=== PATIENT | female | born 1975 | race Caucasian/White ===

== ENCOUNTER 2017-07-24 15:06 | Inpatient (IN) ==
[2017-07-24] MEDS ORDERED: methylPREDNISolone SOD SUCC 125 MG/2 ML VIAL IV ONE (15:21)
[2017-07-24] MEDS ORDERED: IPRATROPIUM/ALBUTEROL 3 ML AMPUL.NEB NEB ONE ×2 (15:21→19:37)
[2017-07-24] MEDS ORDERED: LACTATED RINGERS 1,000 ML IV ONE (15:21)
[2017-07-24 15:49] LABS: Basophils # (Auto) 0 K/mcL (0.0-0.3); Basophils % (Auto) 0.1 % (0.0-2.0); Eosinophils # (Auto) 0.1 K/mcL (0.0-0.7); Eosinophils % (Auto) 0.6 % (0.0-7.0); Granulocytes % (Auto) 83.9 % (38.0-78.0); Lymphocytes # (Auto) 1.9 K/mcL (1.5-4.8); Lymphocytes % (Auto) 10.8 % (15.5-49.0); Mean Cell Volume 82.9 fL (80.0-100.0); Mean Corpuscular HGB Conc 34.5 g/dL (31.0-36.0); Mean Corpuscular Hemoglobin 28.6 pg (26.0-34.0); Monocytes # (Auto) 0.8 K/mcL (0.1-0.9); Monocytes % (Auto) 4.6 % (1.0-12.0); Platelet Count 320 K/mcL (140-440); RBC 4.75 M/mcL (4.00-5.20); Red Cell Distribution Width 13.9 % (11.5-14.5)
[2017-07-24] MEDS ORDERED: AZITHROMYCIN 500 MG in DEXTROSE 5% IN WATER 250 ML IV ONE (16:00)
[2017-07-24] MEDS ORDERED: cefTRIAXone 1 GM in DEXTROSE 5% IN WATER 50 ML IV SCH (16:00)
[2017-07-24] MEDS ORDERED: ACETAMINOPHEN 325 MG TABLET PO ONE (16:01)
[2017-07-24 16:22] LABS: ALT/SGPT 24 U/l (0-40); Albumin 3.7 gm/dL (3.2-5.2); Albumin/Globulin Ratio 1.1 (1.0-2.3); Alkaline Phosphatase 90 U/L (39-117); Blood Urea Nitrogen 10 mg/dl (6-20); C-Reactive Protein 9.7 mg/dl (0.0-0.8); Magnesium 1.9 mg/dL (1.6-2.5)
[2017-07-24] MEDS ORDERED: ONDANSETRON 4 MG/2 ML VIAL IV ONE (16:36)
--- NOTE | 2017-07-24 16:48 | XRay Report ---
CLINICAL INFORMATION: Dyspnea COMPARISON: 07/15/2017 FINDINGS: Heart size, mediastinum and pulmonary vessels are normal. There is moderate patchy infiltrate or atelectasis in the inferior left lower lobe. No definite effusion. Bones and soft tissues normal IMPRESSION: Moderate patchy infiltrate or atelectasis - inferior left lower lobe Interpreted and Authenticated by: Kilo Presley 07/24/17
--- NOTE | 2017-07-24 16:53 | Emergency Department Note ---
SOB HPI - General Chief Complaint: Shortness of Breath/Dyspnea Stated Complaint: short of breath Time Seen by Provider: 07/24/17 15:11 Source: patient, family Mode of arrival: ambulatory Limitations: no limitations - History of Present Illness Very poor historian. Apparently she was placed on some home oxygen by a physician in [place], called a neighbor today because she was short of breath. She is brought up by a neighbor and when she arrived her O2 sats were 68%. She was not on her oxygen when she arrived here. Smokes significantly, she won't tell us how much. Has had a slight cough, denies any fever or chills but is bringing up some phlegm, denies any abdominal pain she's had no nausea vomiting or diarrhea. Denies any ankle swelling. No history of cardiac issues. MD Complaint: shortness of breath - Related Data Home Medications Medication Instructions Recorded Confirmed Amitriptyline HCl 100 mg PO HS 08/22/15 07/24/17 Amitriptyline [Elavil] 25 mg PO HS 08/22/15 07/24/17 DULoxetine [Cymbalta] 60 mg PO DAILY 08/22/15 07/24/17 Doxepin HCl 100 mg PO BID 08/22/15 07/24/17 Gemfibrozil [Lopid] 600 mg PO BID 08/22/15 07/24/17 HYDROcodone/APAP 10/325MG [[place] 1 tab PO Q4H PRN 08/22/15 07/24/17 10/325Mg] LORazepam [Ativan] 2 mg PO Q6-8HP 08/22/15 07/24/17 Pregabalin [Lyrica] 200 mg PO DAILY 08/22/15 07/24/17 Ranitidine HCl [Zantac] 300 mg PO QHS 08/22/15 07/24/17 Venlafaxine [Effexor] 75 mg PO DAILY 08/22/15 07/24/17 busPIRone [Buspar] 10 mg PO TID 08/22/15 07/24/17 Previous Rx's Medication Instructions Recorded Phenazopyridine [Pyridium] 200 mg PO BIDP PRN #14 tablet 12/05/15 Allergies Allergy/AdvReac Type Severity Reaction Status Date / Time No Known Drug Allergies Allergy Verified 04/13/16 14:51 Review of Systems All systems ED: reviewed and negative except as stated. Past Medical History - Past Medical History Source: nursing notes reviewed Medical history: Reports: COPD, other (MRSA) Surgical history ED: Reports: other Psychiatric history: Reports: anxiety, depression Family history: Reports: CAD/[place] - Social History smoking status: Current some day smoker Alcohol use: Reports: Unknown Drug use: Reports: marijuana, other (last UDS showed positive for amphetamines, opiates, barbiturates) Physical Exam - General Limitations: no limitations General appearance: alert, in distress - Head Head exam: atraumatic, normocephalic - Eye Eye exam: Present: normal appearance, PERRL, EOMI - ENT ENT exam: normal exam, normal oropharynx, mucous membranes moist, other ( edentulous) - Neck Neck exam: Present: normal inspection, full ROM. Absent: tenderness, meningismus - Chest Chest inspection: Present: normal inspection, symmetric chest wall rise - Respiratory Respiratory exam: Present: respiratory distress, wheezes, accessory muscle use - Cardiovascular Cardiovascular exam: Present: regular rate, normal heart sounds - Abdominal Exam Abdominal exam: Present: soft, normal bowel sounds. Absent: distention, tenderness, guarding - Extremities Exam Extremities exam: Present: normal inspection, full ROM, tenderness. Absent: normal capillary refill, pedal edema - Back Exam Back exam: Present: normal inspection. Absent: CVA tenderness (R), CVA tenderness (L) - Neurological Exam Neurological exam: Present: alert. Absent: motor sensory deficit - Psychiatric Psychiatric exam: Present: depressed - Skin Skin exam: Present: warm, dry, intact, cyanosis Course Vital Signs Temperature 99.3 F H 07/24/17 15:07 Pulse Rate 113 H 07/24/17 15:07 Respiratory Rate 24 H 07/24/17 15:07 Blood Pressure 106/76 07/24/17 15:07 Pulse Oximetry (%) 68 L 07/24/17 15:07 Temperature 100.1 F H 07/24/17 16:25 Pulse Rate 115 H 07/24/17 16:41 Respiratory Rate 19 07/24/17 16:41 Blood Pressure 125/65 07/24/17 16:41 Pulse Oximetry (%) 97 07/24/17 16:41 Shortness of Breath/Dyspnea - [facility] Narrative Medical decision making narrative: Final impression pneumonia, #2 COPD exacerbation Plan is hospital admission, discussed with Dr. Jc - Lab Data Lab results reviewed: Yes I reviewed the patient's lab results. Result diagrams: 07/24/17 15:29 07/24/17 15:29 Lab Results 07/24/17 07/24/17 07/24/17 Range/Units 15:29 15:29 15:29 WBC 17.5 H (4.5-11.0) K/mcL RBC 4.75 (4.00-5.20) M/mcL Hgb 13.6 (12.0-15.0) g/dL Hct 39.4 (36.0-48.0) % MCV 82.9 (80.0-100.0) fL MCH 28.6 (26.0-34.0) pg MCHC 34.5 (31.0-36.0) g/dL RDW 13.9 (11.5-14.5) % Plt Count 320 (140-440) K/mcL MPV 7.9 (7.4-10.4) fL Gran % 83.9 H (38.0-78.0) % Lymph % (Auto) 10.8 L (15.5-49.0) % [place] % (Auto) 4.6 (1.0-12.0) % Eos % (Auto) 0.6 (0.0-7.0) % Baso % (Auto) 0.1 (0.0-2.0) % Gran # 14.7 H (1.8-8.0) K/mcL Lymph # (Auto) 1.9 (1.5-4.8) K/mcL [place] # (Auto) 0.8 (0.1-0.9) K/mcL Eos # (Auto) 0.1 (0.0-0.7) K/mcL Baso # (Auto) 0 (0.0-0.3) K/mcL PT 13.8 (11.9-14.5) sec INR 1.0 (0.9-1.1) D-Dimer 0.71 H (0.00-0.40) ug/ml Sodium 137 (133-145) mmol/L Potassium 3.5 (3.3-5.1) mmol/L Chloride 94 L (96-108) mmol/L Carbon Dioxide 29 (22-30) mmol/L Anion Gap 14.0 (8-16) BUN 10 (6-20) mg/dl Creatinine 0.8 (0.6-1.1) mg/dl GFR Calculation 90 Glucose 116 H (70-105) mg/dL Calcium 8.7 (8.6-10.4) mg/dl Magnesium 1.9 (1.6-2.5) mg/dL Total Bilirubin 0.5 (0.0-1.0) mg/dL AST 17 (0-37) U/l ALT 24 (0-40) U/l Alkaline Phosphatase 90 (39-117) U/L C-Reactive Protein (0.0-0.8) mg/dl Total Protein 7.1 (5.9-8.4) gm/dL Albumin 3.7 (3.2-5.2) gm/dL Globulin 3.4 (2.2-3.7) gm/dL Albumin/Globulin Ratio 1.1 (1.0-2.3) 07/24/17 Range/Units 15:29 WBC (4.5-11.0) K/mcL RBC (4.00-5.20) M/mcL Hgb (12.0-15.0) g/dL Hct (36.0-48.0) % MCV (80.0-100.0) fL MCH (26.0-34.0) pg MCHC (31.0-36.0) g/dL RDW (11.5-14.5) % Plt Count (140-440) K/mcL MPV (7.4-10.4) fL Gran % (38.0-78.0) % Lymph % (Auto) (15.5-49.0) % [place] % (Auto) (1.0-12.0) % Eos % (Auto) (0.0-7.0) % Baso % (Auto) (0.0-2.0) % Gran # (1.8-8.0) K/mcL Lymph # (Auto) (1.5-4.8) K/mcL [place] # (Auto) (0.1-0.9) K/mcL Eos # (Auto) (0.0-0.7) K/mcL Baso # (Auto) (0.0-0.3) K/mcL PT (11.9-14.5) sec INR (0.9-1.1) D-Dimer (0.00-0.40) ug/ml Sodium (133-145) mmol/L Potassium (3.3-5.1) mmol/L Chloride (96-108) mmol/L Carbon Dioxide (22-30) mmol/L Anion Gap (8-16) BUN (6-20) mg/dl Creatinine (0.6-1.1) mg/dl GFR Calculation Glucose (70-105) mg/dL Calcium (8.6-10.4) mg/dl Magnesium (1.6-2.5) mg/dL Total Bilirubin (0.0-1.0) mg/dL AST (0-37) U/l ALT (0-40) U/l Alkaline Phosphatase (39-117) U/L C-Reactive Protein 9.7 H (0.0-0.8) mg/dl Total Protein (5.9-8.4) gm/dL Albumin (3.2-5.2) gm/dL Globulin (2.2-3.7) gm/dL Albumin/Globulin Ratio (1.0-2.3) - Radiology Data Radiology results reviewed: Yes I reviewed the patient's radiology results. Disposition Pt seen by CREDIT RISK ASSOCIATE/PA only: No Clinical Impression: Community acquired pneumonia, Acute exacerbation of chronic obstructive airways disease Disposition: Xfer As Inpt ([facility]) Condition: Fair Referrals: Esther Rubin ARNP [Primary Care Provider] -
[2017-07-24] MEDS ORDERED: NICOTINE 21 MG PATCH TOPICAL ONE (17:09)
--- NOTE | 2017-07-24 17:39 | Internal Med History&Physical ---
Medical - H&P: HPI Patient information: Note initiated : 07/24/17 at 5:39 pm Patient: Cassie Rivera 42 y/o F admitted on for short of breath. History of present illness: Ms. Rivera is a 42 year old white female with a history of chronic pain and fibromyalgia. She also has been a smoker since the age of 7. She apparently went to a clinic or hospital in [place] about 5 days ago, when she noted dyspnea on exertion. She says they did some tests, and then prescribed her oxygen and gave her a shot of a "blood thinner" in her abdomen. She says they prescribed her inhalers at that time as well. She cannot really recall what tests they did or what the results were, or even the name of the facility. She says she has not been diagnosed with COPD in the past. Over the last 5 days her breathing is gotten worse, and she was going to go see her regular doctor tomorrow as scheduled, but her sister insisted that she come to the emergency room today. Apparently O2 saturations on room air today were in the 60s. Chest x-ray is suggestive of left lower lobe pneumonia. She also had a low- grade fever. She reports that she has had a cough productive of yellowish phlegm for the last 5 days, as well as a sore throat. She is having some chest pain with coughing, which she describes as a "sandpaper" type sensation. She is having dyspnea with exertion as well as at rest, and also when lying flat. She otherwise denies recent fever or chills. She does have chronic headaches, which are unchanged. She has chronic blurry vision, which is unchanged. She denies earaches or sinus symptoms. She denies palpitations, abdominal pain, nausea or vomiting. She does have chronic diarrhea, as well as chronic edema. She denies dysuria. Past medical history: Urinary tract infection, sepsis COPD, oxygen dependent. MRSA Depression and anxiety, insomnia Hypertension history of GERD and gastritis Chronic tobacco abuse Fibromyalgia History of polypharmacy, overdose in August 2015, with amphetamines, barbiturates, opiates (unintentional) Chronic pain Hypertriglyceridemia Past surgical history: Hysterectomy, cholecystectomy, bladder lift. Medications: (Unverified) Clonazepam 2 mg 3 times daily Flexeril 10 mg 3 times daily [place] 10/325 one every 4 hours as needed Gemfibrozil 600 mg twice daily Doxepin 100 mg twice daily Cymbalta 60 mg daily Elavil 25 mg nightly +100 mg nightly BuSpar 10 mg 3 times daily Effexor 75 mg daily Ranitidine 300 mg nightly Lyrica 200 mg daily Pyridium 200 mg twice daily as needed From [place] discharge summary, a few days ago: Albuterol 2 puffs every 6 hours as needed BuSpar 15 mg every 6 hours Chlorzoxazone 500 mg 3 times daily Clonazepam 2 mg 3 times daily Doxepin 100 mg nightly Duloxetine 30 mg nightly [place] 50-325-41 every 6 hours as needed Lisinopril 20 mg daily Loperamide 2 mg 4 times daily as needed Omeprazole 20 mg nightly Promethazine 25 mg every 6 hours as needed Elavil 25 mg nightly [place] 10/325 every 6 hours as needed Lyrica 400 mg nightly Allergies: No known drug allergies Family history: Coronary disease. Patient reports her mother and father and both grandparents had heart failure. There is also family history of pancreatic , uterine, breast, throat cancers. Social history: Current smoker. Patient has been smoking since the age of 7, and currently smokes 3 packs of cigarettes per day. She has never really tried to quit. Past history of marijuana, amphetamine, barbiturate use, with unintentional overdose. She smokes marijuana about every other day. She drinks alcohol rarely. Medical - H&P: Meds Home Medications Medication Instructions Recorded Confirmed Type Amitriptyline [Elavil] 100 mg PO HS 08/22/15 07/25/17 History DULoxetine [Cymbalta] 30 mg PO HS 08/22/15 07/25/17 History Doxepin HCl 100 mg PO HS 08/22/15 07/25/17 History HYDROcodone/APAP 10/325MG [[place] 1 tab PO Q6HP PRN 08/22/15 07/25/17 History 10/325Mg] Pregabalin [Lyrica] 400 mg PO HS 08/22/15 07/25/17 History clonazePAM [Klonopin] 2 mg PO TID 07/24/17 07/25/17 History Albuterol Sulfate [Ventolin] 2 puff INH Q6HP PRN 07/25/17 07/25/17 History Chlorzoxazone [Parafon Forte Dsc] 500 mg PO TID 07/25/17 07/25/17 History Fiorinal 50-325-40 mg Capsule 1 tab PO Q6HP PRN 07/25/17 07/25/17 History Lisinopril [Zestril] 20 mg PO DAILY 07/25/17 07/25/17 History Loperamide HCl [Loperamide] 2 mg PO QIDP PRN 07/25/17 07/25/17 History Omeprazole [PriLOSEC] 20 mg PO HS 07/25/17 07/25/17 History Promethazine [Phenergan] 25 mg PO Q6HP PRN 07/25/17 07/25/17 History busPIRone [Buspar] 15 mg PO Q6 07/25/17 07/25/17 History Allergies Allergy/AdvReac Type Severity Reaction Status Date / Time baclofen AdvReac Other Verified 07/24/17 23:46 Medical - H&P: Exam - Constitutional Vitals: Temp Pulse Resp BP Pulse Ox 100.8 F H 107 H 19 118/66 95 07/24/17 17:10 07/24/17 17:06 07/24/17 17:06 07/24/17 17:06 07/24/17 17:06 On arrival, temperature was 99.3, heart rate 113, respiratory rate 24, blood pressure 106/76, O2 saturation 68% on room air. O2 saturation is currently 97% on 3 L nasal cannula. Head: Normocephalic, atraumatic. Eyes: PERRLA, EOMI, anicteric, other than a mild left lid droop, which she says is chronic. Ears: TMs and canals are clear. Pharynx: Pharynx is clear. She is edentulous. Mucosa appears normal. Neck: Is supple, without obvious lymphadenopathy, thyromegaly, bruits. Jugular venous pressure is 6 or 7 cm lying at about 30. Cardiac exam: Shows regular rate and rhythm with normal S1 and S2, without murmurs or rubs or gallops. Lung exam: Posteriorly breath sounds are decreased, without rhonchi or crackles. She does have some wheezing over the left anterior chest, expiratory. Abdomen: Is obese, but soft and nontender. There is a small bruise in the mid abdomen which is from the injection she received about 5 days ago. She believes it was a blood thinner and that it was not a steroid shot. Extremities: Show no cyanosis, clubbing, edema. Pulses are intact. Neurologic exam: Is grossly nonfocal. Medical - H&P: Reslt - Labs CBC & Chem 7: 07/25/17 04:31 07/25/17 04:31 Labs: Short CBC 07/24/17 Range/Units 15:29 WBC 17.5 H (4.5-11.0) K/mcL Hgb 13.6 (12.0-15.0) g/dL Hct 39.4 (36.0-48.0) % Plt Count 320 (140-440) K/mcL BMP 07/24/17 15:29 Sodium 137 Potassium 3.5 Chloride 94 L Carbon Dioxide 29 BUN 10 Creatinine 0.8 Glucose 116 H Calcium 8.7 Liver Function 07/24/17 Range/Units 15:29 Total Bilirubin 0.5 (0.0-1.0) mg/dL AST 17 (0-37) U/l ALT 24 (0-40) U/l Alkaline Phosphatase 90 (39-117) U/L Albumin 3.7 (3.2-5.2) gm/dL Medical - H&P: A/P (1) Hypoxia Current visit: Yes Status: Acute (2) Tobacco abuse Current visit: Yes Status: Chronic (3) Fibromyalgia Current visit: Yes Status: Chronic (4) Chronic pain Current visit: Yes Status: Chronic (5) Chronic diarrhea Current visit: Yes Status: Chronic (6) Depression with anxiety Current visit: Yes Status: Chronic (7) Community acquired pneumonia Current visit: Yes Status: Acute (8) Acute exacerbation of chronic obstructive airways disease Current visit: Yes Status: Acute - Narrative A/P Narrative: #1. Pulmonary. Patient presents with ongoing dyspnea and room air hypoxia. Chest x-ray suggestive of left lower lobe pneumonia. However, patient was also evaluated at another facility in [place] about 5 days ago, and is uncertain about what those results showed. She appears to have a COPD exacerbation, but has never been diagnosed with COPD. -Admit for further workup and treatment. -Continuous pulse oximetry -Albuterol nebs, oxygen, pulmonary toilet as needed -Consider IV steroids. -Try to find out the name of the facility where she had testing in [place], to see if she had a CT scan of her chest. If she did not, consider CT angios here , given the confusing nature of her recent history. -For apparent pneumonia, cover with Rocephin and azithromycin. -Given possible JVD, as well as orthopnea, check EKG and BNP, and troponin. 2. Tobacco abuse. -NicoDerm patch. -We discussed that it is important that she consider quitting smoking. She says she is willing to think about it. 3. Rheumatologic. Patient reports a history of fibromyalgia and chronic pain. She is on numerous medications, that generally would not be used together. We will try to contact [facility]'s pharmacy to verify medications and doses. Next line including clonazepam, Flexeril, [place], doxepin, Cymbalta, Elavil, BuSpar, Effexor, Lyrica. 4. Status: Full code. She says she would like her twin sister, Reshma De Guzman, to be her POA. 5. DVT prophylaxis: Subcu Lovenox. 6. Depression and anxiety. Continue medications, once we verify them. These would include clonazepam, doxepin, Cymbalta, Elavil, BuSpar, Effexor. 7. Hypertension. 8. GI. History of GERD and gastritis. Patient should consider quitting smoking. Continue ranitidine. 9. Hypertriglyceridemia. This visit is taken approximately 60 minutes so far, to review patient's case with the ER MD, review her records and test results, interview and examine her, and write orders.
[2017-07-24 18:09] LABS: Amphetamine Screen,Urine NONE DETECTED (NONDETECTED); Cocaine Screen,Urine NONE DETECTED (NONDETECTED); Oxycodone, Urine Screen NONE DETECTED (NONDETECTED)
[2017-07-24 18:25] LABS: Benzodiazepines Screen,Urine SUSPECT POSITIVE (NONDETECTED); Opiate Screen,Urine SUSPECT POSITIVE (NONDETECTED)
[2017-07-24] MEDS ORDERED: DOCUSATE SODIUM 100 MG CAPSULE PO PRN (19:10)
[2017-07-24] MEDS ORDERED: CALCIUM CARBONATE 500 MG TAB.CHEW CHEWED PRN (19:10)
[2017-07-24] MEDS ORDERED: NALOXONE HCL 0.4 MG/ML VIAL IV PRN (19:10)
[2017-07-24] MEDS ORDERED: ALBUTEROL SULFATE 2.5 MG/3 ML NEBULIZER NEB PRN (19:10)
[2017-07-24] MEDS ORDERED: ACETAMINOPHEN 325 MG TABLET PO PRN (19:10)
[2017-07-24] MEDS ORDERED: MAGNESIUM HYDROXIDE 30 ML ORAL.SUSP PO PRN (19:10)
[2017-07-24] MEDS: IPRATROPIUM/ALBUTEROL 3 ML AMPUL.NEB NEB SCH (19:35)
[2017-07-24] MEDS ORDERED: POTASSIUM CHLORIDE 20 MEQ/10 ML VIAL IV ONE (20:11)
[2017-07-24] MEDS: POTASSIUM CHLORIDE 20 MEQ in 0.45 % SODIUM CHLORIDE 1,000 ML IV SCH (20:28)
[2017-07-24] MEDS: 0.9 % SODIUM CHLORIDE 10 ML SYRINGE IV SCH (20:31)
[2017-07-24] MEDS: HYDROcodone/APAP 10/325MG TABLET PO PRN (23:40)
[2017-07-24] MEDS ORDERED: HYDROcodone/APAP 10/325MG TABLET PO ONE (23:44)
[2017-07-25] MEDS: ONDANSETRON 4 MG/2 ML VIAL IV PRN ×2 (00:03→21:46)
[2017-07-25] MEDS: CYCLOBENZAPRINE 10 MG TABLET PO SCH ×4 (00:03→20:17)
[2017-07-25] MEDS: IPRATROPIUM/ALBUTEROL 3 ML AMPUL.NEB NEB SCH ×4 (01:32→18:52)
[2017-07-25] MEDS: 0.9 % SODIUM CHLORIDE 10 ML SYRINGE IV SCH ×3 (05:54→21:50)
[2017-07-25 05:56] LABS: Basophils # (Auto) 0 K/mcL (0.0-0.3); Basophils % (Auto) 0.1 % (0.0-2.0); Eosinophils # (Auto) 0.1 K/mcL (0.0-0.7); Eosinophils % (Auto) 0.6 % (0.0-7.0); Granulocytes % (Auto) 86.3 % (38.0-78.0); Lymphocytes # (Auto) 1.2 K/mcL (1.5-4.8); Lymphocytes % (Auto) 9.3 % (15.5-49.0); Mean Cell Volume 85.9 fL (80.0-100.0); Mean Corpuscular HGB Conc 34.1 g/dL (31.0-36.0); Mean Corpuscular Hemoglobin 29.3 pg (26.0-34.0); Monocytes # (Auto) 0.5 K/mcL (0.1-0.9); Monocytes % (Auto) 3.7 % (1.0-12.0); Platelet Count 321 K/mcL (140-440); RBC 4.14 M/mcL (4.00-5.20); Red Cell Distribution Width 13.9 % (11.5-14.5)
[2017-07-25 06:11] LABS: ALT/SGPT 18 U/l (0-40); Albumin 3.5 gm/dL (3.2-5.2); Albumin/Globulin Ratio 1.1 (1.0-2.3); Alkaline Phosphatase 82 U/L (39-117); Bilirubin,Direct < 0.2 mg/dL (0.0-0.3); Blood Urea Nitrogen 12 mg/dl (6-20); Gamma Glutamyl Transpeptidase 26 U/L (5-36); Magnesium 2.1 mg/dL (1.6-2.5)
--- NOTE | 2017-07-25 08:05 | XRay Report ---
CLINICAL INFORMATION: Follow pneumonia COMPARISON: 07/24/2017 FINDINGS: Heart size, mediastinum and pulmonary vessels are normal. Small left basilar infiltrate has improved slightly. No definite effusion IMPRESSION: Slight improvement in small left basilar infiltrate. Interpreted and Authenticated by: Kilo Presley 07/25/17
[2017-07-25] MEDS: cefTRIAXone 1 GM in DEXTROSE 5% IN WATER 50 ML IV SCH (09:30)
[2017-07-25] MEDS: PREGABALIN 100 MG CAPSULE PO SCH (09:39)
[2017-07-25] MEDS: ENOXAPARIN 40 MG/0.4 ML SYRINGE SQ SCH (09:40)
[2017-07-25] MEDS: HYDROcodone/APAP 10/325MG TABLET PO PRN ×3 (09:42→20:15)
--- NOTE | 2017-07-25 10:19 | Internal Med Progress Note ---
Medical - PN: Subj Patient information: Note initiated : 07/25/17 at 10:19 am Patient: Cassie Rivera 42 y/o F admitted on 07/24/17 for short of breath. Interval history: July 24, 2017: History of present illness: Ms. Rivera is a 42 year old white female with a history of chronic pain and fibromyalgia. She also has been a smoker since the age of 7. She apparently went to a clinic or hospital in [place] about 5 days ago, when she noted dyspnea on exertion. She says they did some tests, and then prescribed her oxygen and gave her a shot of a "blood thinner" in her abdomen. She says they prescribed her inhalers at that time as well. She cannot really recall what tests they did or what the results were, or even the name of the facility. She says she has not been diagnosed with COPD in the past. Over the last 5 days her breathing is gotten worse, and she was going to go see her regular doctor tomorrow as scheduled, but her sister insisted that she come to the emergency room today. Apparently O2 saturations on room air today were in the 60s. Chest x-ray is suggestive of left lower lobe pneumonia. She also had a low- grade fever. She reports that she has had a cough productive of yellowish phlegm for the last 5 days, as well as a sore throat. She is having some chest pain with coughing, which she describes as a "sandpaper" type sensation. She is having dyspnea with exertion as well as at rest, and also when lying flat. She otherwise denies recent fever or chills. She does have chronic headaches, which are unchanged. She has chronic blurry vision, which is unchanged. She denies earaches or sinus symptoms. She denies palpitations, abdominal pain, nausea or vomiting. She does have chronic diarrhea, as well as chronic edema. She denies dysuria. July 25: This morning, the patient is quite somnolent. She notes that she was up until about 3 AM, she could just could not get to sleep. She thinks her breathing might be a bit better but she is not entirely sure. We did obtain some records from [facility] where she was seen last week. They treated her for COPD exacerbation, but she left after only one day, as she was insistent on leaving so she could go out and smoke. Otherwise she reports her usual widespread chronic pain. She denies fever chills, chest pain or palpitations, GI or symptoms, beyond her usual. She did undergo a CT angiogram today, which does show emphysema, atelectasis, and bilateral infiltrates, but did not show PE. - Constitutional Vitals: Vital Signs Temp Pulse Resp BP Pulse Ox 97.4 F 95 H 20 126/70 91 07/25/17 08:00 07/25/17 08:00 07/25/17 08:00 07/25/17 08:00 07/25/17 08:00 Period Temp Pulse Resp BP Sys/Ohara Pulse Ox Last 24 Hr 97.4 F-98.1 F 78-104 16-22 105-126/69-72 90-96 Intake and Output 07/24/17 07/25/17 07/25/17 21:59 05:59 13:59 Intake Total 400 / 400 Output Total 250 / 250 400 / 400 200 / 200 Balance -250 / 1050 0 / 0 -200 / -200 Weight 203 lb Intake & Output: Intake & Output 07/24/17 07/25/17 07/25/17 21:59 05:59 13:59 Intake Total 400 / 400 Output Total 250 / 250 400 / 400 200 / 200 Balance -250 / 1050 0 / 0 -200 / -200 Weight 203 lb Intake: Oral 400 / 400 Output: Void Amount 250 / 250 400 / 400 200 / 200 Other: Meal soup & sandwich Percent of Meal Consumed 100% Feeding Ability Independent # Voids 1 1 1 On exam she was quite somnolent, and had to be repeatedly spoken to and touch to get her to interact at all. She seemed reluctant to open her eyes. She was otherwise in no acute distress. Current vital signs show temperature of 97.7, heart rate 104, respiratory rate 16, blood pressure 118/70, O2 saturation 92% on 4 L Neck was supple without lymphadenopathy or JVD. Cardiac exam shows regular rate and rhythm. Lung exam shows diffuse and fairly loud wheezes and rhonchi throughout both lung [place]. Abdomen is soft. Extremities show no edema. Neurologic: The patient is very sleepy. Medical - PN: Obj Da - Labs CBC & Chem 7: 07/25/17 04:31 07/25/17 04:31 Labs: Abnormal Lab Results 07/25/17 07/25/17 04:31 04:31 WBC 13.3 H Hct 35.6 L Gran % 86.3 H Lymph % (Auto) 9.3 L Gran # 11.5 H Lymph # (Auto) 1.2 L Creatinine 0.5 L Glucose 130 H July 25: CT angiogram of the chest: Shows mild centrilobular emphysema. Moderate subsegmental atelectasis in the lingula, left lower lobe, inferior right lower lobe. Vague patchy groundglass infiltrates in the right upper lobe and both lower lobes. 23 mm nodule noted in the left thyroid lobe and 19 mm nodule in the right thyroid lobe. Consider follow-up in 6 months. Moderate hepatomegaly with diffuse fatty changes. No PE. July 24: CBC: White blood cell count 17,000, hematocrit 39, platelets 320,000, granulocyte count 14,700 D-dimer elevated at 0.71 next Lactic acid normal at 0.6 Chemistry panel: Notable for chloride of 94, glucose 116 Troponin T is normal at less than 0.01 CRP is elevated at 9.7 ProBNP is normal at less than 50 Urine tox screen is positive for opiates, barbiturates, benzodiazepines Sputum Gram stain shows many polys but no organisms. Culture is pending. Blood cultures are negative so far. Meds: Medications Acetaminophen (Tylenol) 650 mg PO Q6HP PRN PRN Reason: PAIN/FEVER > 101 Hydrocodone Bitart/Acetaminophen (Brooks 10/325mg) 1 tab PO Q4H PRN PRN Reason: Pain Last Admin: 07/25/17 09:42 Dose: 1 tab Albuterol Sulfate (Ventolin) 2.5 mg NEB Q2HP PRN PRN Reason: Shortness Of Breath Albuterol/Ipratropium (Duoneb) 3 ml NEB Q6HRT [facility] Last Admin: 07/25/17 07:21 Dose: 3 ml Amitriptyline HCl (Elavil) 125 mg PO HS [facility] Calcium Carbonate/Glycine (Tums) 1,000 mg CHEWED Q4HP PRN PRN Reason: Dyspepsia Cyclobenzaprine HCl (Flexeril) 10 mg PO TID [facility] Last Admin: 07/25/17 09:38 Dose: 10 mg Docusate Sodium (Colace) 100 mg PO BID PRN PRN Reason: Constipation Enoxaparin Sodium (Lovenox) 40 mg SQ DAILY [facility] Last Admin: 07/25/17 09:40 Dose: 40 mg Famotidine (Pepcid) 40 mg PO HS [facility] Azithromycin 500 mg/ Dextrose 250 mls @ 250 mls/hr IV Q24H [facility] Stop: 07/26/17 10:59 Ceftriaxone Sodium 1 gm/ (Dextrose) 50 mls @ 100 mls/hr IV Q24H [facility] Potassium Chloride 20 meq/ (Sodium Chloride) 1,010 mls @ 75 mls/hr IV .[id number] [facility] Last Admin: 07/24/17 20:28 Dose: 75 mls/hr Magnesium Hydroxide (Milk Of Magnesia) 30 ml PO DAILYP PRN PRN Reason: Constipation Naloxone HCl (Narcan) 0.1 mg IV Q2MIN PRN PRN Reason: Opiate Reversal Nicotine (Nicoderm) 21 mg TOPICAL DAILY@1000 GING[facility] Ondansetron HCl (Zofran) 4 mg IV Q6HP PRN PRN Reason: Nausea And Vomiting Last Admin: 07/25/17 00:03 Dose: 4 mg Pregabalin (Lyrica) 200 mg PO DAILY [facility] Last Admin: 07/25/17 09:39 Dose: 200 mg Sodium Chloride (Saline Flush) 10 ml IV Q8 [facility] Last Admin: 07/25/17 05:54 Dose: Not Given Medical - PN: A/P - Time Spent With Patient Total time spent is greater than 50% in coordination of care (as documented) at patient's floor/unit and/or counseling patient: 25 - 35 minutes (1) Hypoxia Status: Acute Current Visit: Yes (2) Tobacco abuse Status: Chronic Current Visit: Yes (3) Fibromyalgia Status: Chronic Current Visit: Yes (4) Chronic pain Status: Chronic Current Visit: Yes (5) Chronic diarrhea Status: Chronic Current Visit: Yes (6) Depression with anxiety Status: Chronic Current Visit: Yes (7) Community acquired pneumonia Status: Acute Current Visit: Yes (8) Acute exacerbation of chronic obstructive airways disease Status: Acute Current Visit: Yes - Narrative A/P Narrative: #1. Pulmonary. Patient presents with ongoing dyspnea and room air hypoxia. Chest x-ray suggestive of left lower lobe pneumonia. However, patient was also evaluated at another facility in [place] about 5 days ago, and is uncertain about what those results showed. She appears to have a COPD exacerbation, but has never been diagnosed with COPD. Chest CT scan today does confirm emphysema and bilateral infiltrates, so this presentation is likely most consistent with pneumonia superimposed on COPD. Continue current treatment plan: -Continuous pulse oximetry -Albuterol nebs, oxygen, pulmonary toilet as needed -Consider IV steroids. -For apparent pneumonia, cover with Rocephin and azithromycin. 2. Tobacco abuse. -NicoDerm patch. -We discussed that it is important that she consider quitting smoking. She says she is willing to think about it. 3. Rheumatologic. Patient reports a history of fibromyalgia and chronic pain. She is on numerous medications, that generally would not be used together. We did receive a discharge medication list from [place], so we will try to use that as her official home medication list, although there is still some questions about taking amitriptyline in addition to doxepin. Most home medications were resumed today. 4. Status: Full code. She says she would like her twin sister, Reshma De Guzman, to be her POA. 5. DVT prophylaxis: Subcu Lovenox. 6. Depression and anxiety. Continue medications, clonazepam, doxepin, Cymbalta, BuSpar. 7. Hypertension. Controlled. 8. GI. History of GERD and gastritis. Patient should consider quitting smoking. Continue ranitidine. 9. Hypertriglyceridemia. Medical - PN: Qual - Stroke Symptom Onset Unknown: No - VTE Deep Vein Thrombosis/Pulmonary Embolism Present on Admission: No
[2017-07-25] MEDS: AZITHROMYCIN 500 MG in DEXTROSE 5% IN WATER 250 ML IV SCH (10:21)
[2017-07-25] MEDS: POTASSIUM CHLORIDE 20 MEQ in 0.45 % SODIUM CHLORIDE 1,000 ML IV SCH (10:21)
[2017-07-25] MEDS ORDERED: PROMETHAZINE 25 MG TABLET PO PRN (10:23)
[2017-07-25] MEDS ORDERED: LOPERAMIDE 2 MG CAPSULE PO PRN (10:43)
[2017-07-25] MEDS ORDERED: BUTALB/ACETAMINOPHEN/CAFFEINE 1 TABLET PO PRN (10:48)
[2017-07-25] MEDS: NICOTINE 21 MG PATCH TOPICAL SCH (11:09)
[2017-07-25] MEDS: busPIRone 5 MG TABLET PO SCH ×2 (12:10→17:54)
[2017-07-25] MEDS ORDERED: IOPAMIDOL 100 ML BOTTLE IJ ONE (12:40)
--- NOTE | 2017-07-25 13:28 | Cat Scan Report ---
CLINICAL INFORMATION: Elevated d-dimer orthopnea COMPARISON: Lung base through abdomen CT 08/22/2015 TECHNIQUE: Axial images obtained through the chest. intravenous contrast administration was administered, and scanning was performed during pulmonary arterial phase. Sagittally and coronally reformatted images were obtained. MIP reformatted images. FINDINGS: The pulmonary arteries are suboptimally opacified but no emboli identified and they are normal in contour and caliber. Thoracic aorta is also normal in contour and caliber. There is a 13 mm short axis lymph node in the lower right peritracheal region which is likely benign reactive lymph node - no other regions of adenopathy. The esophagus is normal. Heart is normal in size and configuration. No definite plaque seen within the coronary arteries. Pulmonary parenchymal windows show mild centrilobular emphysema changes featuring chronic bronchitis, elevated lung volumes and scattered bullae - predominantly upper lobes. Moderate subsegmental atelectasis is noted in the inferior lingula and inferior left lower lobe region. There is also minimal subsegmental atelectasis atelectasis in the inferior right lower lobe. There is patchy groundglass infiltrate in the posterior segment of the right upper lobe and scattered within the remaining of both lower lobes. There are no effusions. Images through the abdomen show moderate hepatomegaly with diffuse fatty change within the liver. This has worsened from the comparison abdomen CT. The visualized kidneys spleen and pancreas are normal. Bone windows show no osseous abnormality IMPRESSION: 1. No evidence of pulmonary embolus 2. Mild centrilobular emphysema changes 3. Moderate subsegmental atelectasis in the lingula, inferior left lower lobe with mild subsegmental atelectasis in the inferior right lower lobe. 4. Vague patchy groundglass infiltrate posterior segment of the right upper lobe and scattered throughout both lower lobes. 5. 23 mm nodule inferior left thyroid lobe and 19 mm nodule inferior right thyroid lobe. Consider ultrasound follow-up in six months. They're likely benign adenomas 6. Moderate hepatomegaly with diffuse fatty change please correlate with LFTs Interpreted and Authenticated by: Kilo Presley 07/25/17
[2017-07-25] MEDS ORDERED: CHLORZOXAZONE 500 MG PO SCH (15:00)
[2017-07-25] MEDS: clonazePAM 0.5 MG TABLET PO SCH ×2 (15:13→20:17)
[2017-07-25] MEDS ORDERED: cefTRIAXone 1 GM in DEXTROSE 5% IN WATER 50 ML IV SCH (16:00)
[2017-07-25] MEDS ORDERED: predniSONE 20 MG TABLET PO ONE (17:12)
[2017-07-25] MEDS: DOXEPIN 25 MG CAPSULE PO SCH (20:17)
[2017-07-25] MEDS: OMEPRAZOLE 20 MG CAPSULE PO SCH (20:17)
[2017-07-25] MEDS: DULoxetine 30 MG CAPSULE PO SCH (20:17)
[2017-07-25] MEDS ORDERED: FAMOTIDINE 20 MG TABLET PO SCH (21:00)
[2017-07-25] MEDS ORDERED: AMITRIPTYLINE HCL 100 MG PO SCH (21:00)
[2017-07-25] MEDS ORDERED: AMITRIPTYLINE 25 MG TABLET PO SCH ×2 (21:00)
[2017-07-25] MEDS ORDERED: NON FORMULARY MEDICATION 1 DOSE MISCELL (Ranitidine Hcl [Zantac] 300 MG) PO SCH (21:00)
[2017-07-26] MEDS: busPIRone 5 MG TABLET PO SCH ×5 (00:18→18:00)
[2017-07-26] MEDS: IPRATROPIUM/ALBUTEROL 3 ML AMPUL.NEB NEB SCH ×4 (01:33→19:50)
[2017-07-26] MEDS: POTASSIUM CHLORIDE 20 MEQ in 0.45 % SODIUM CHLORIDE 1,000 ML IV SCH ×3 (01:51→17:11)
[2017-07-26] MEDS: 0.9 % SODIUM CHLORIDE 10 ML SYRINGE IV SCH ×3 (05:43→21:31)
[2017-07-26 06:10] LABS: Basophils # (Auto) 0 K/mcL (0.0-0.3); Basophils % (Auto) 0.2 % (0.0-2.0); Eosinophils # (Auto) 0 K/mcL (0.0-0.7); Eosinophils % (Auto) 0.4 % (0.0-7.0); Granulocytes % (Auto) 81.4 % (38.0-78.0); Lymphocytes # (Auto) 1.5 K/mcL (1.5-4.8); Lymphocytes % (Auto) 13.5 % (15.5-49.0); Mean Cell Volume 86.1 fL (80.0-100.0); Mean Corpuscular HGB Conc 34.1 g/dL (31.0-36.0); Mean Corpuscular Hemoglobin 29.3 pg (26.0-34.0); Monocytes # (Auto) 0.5 K/mcL (0.1-0.9); Monocytes % (Auto) 4.5 % (1.0-12.0); Platelet Count 285 K/mcL (140-440); RBC 3.93 M/mcL (4.00-5.20); Red Cell Distribution Width 14.2 % (11.5-14.5)
[2017-07-26 06:46] LABS: ALT/SGPT 17 U/l (0-40); Albumin 3.3 gm/dL (3.2-5.2); Albumin/Globulin Ratio 1.2 (1.0-2.3); Alkaline Phosphatase 77 U/L (39-117); Bilirubin,Direct < 0.2 mg/dL (0.0-0.3); Blood Urea Nitrogen 17 mg/dl (6-20); Gamma Glutamyl Transpeptidase 21 U/L (5-36); Magnesium 1.8 mg/dL (1.6-2.5); Uric Acid 4.9 mg/dL (2.5-8.0)
[2017-07-26] MEDS: ONDANSETRON 4 MG/2 ML VIAL IV PRN ×2 (09:05→20:30)
[2017-07-26] MEDS: cefTRIAXone 1 GM in DEXTROSE 5% IN WATER 50 ML IV SCH (09:05)
[2017-07-26] MEDS: CYCLOBENZAPRINE 10 MG TABLET PO SCH ×3 (09:09→20:11)
[2017-07-26] MEDS: clonazePAM 0.5 MG TABLET PO SCH ×3 (09:09→20:11)
[2017-07-26] MEDS: predniSONE 20 MG TABLET PO SCH (09:10)
[2017-07-26] MEDS: PREGABALIN 100 MG CAPSULE PO SCH (09:10)
[2017-07-26] MEDS: ENOXAPARIN 40 MG/0.4 ML SYRINGE SQ SCH (09:11)
[2017-07-26] MEDS: HYDROcodone/APAP 10/325MG TABLET PO PRN ×4 (09:11→22:02)
[2017-07-26] MEDS: NICOTINE 21 MG PATCH TOPICAL SCH (09:12)
[2017-07-26] MEDS: LISINOPRIL 20 MG TABLET PO SCH (09:12)
[2017-07-26] MEDS: AZITHROMYCIN 500 MG in DEXTROSE 5% IN WATER 250 ML IV SCH (12:00)
--- NOTE | 2017-07-26 13:38 | Internal Med Progress Note ---
Medical - PN: Subj Patient information: Note initiated : 07/26/17 at 1:36 pm Service Date, if different from initiated Date: [] Patient: Cassie Rivera 42 y/o F admitted on 07/24/17 for Short of Breath/ Pneumonia. Chief Complaint: [] Interval history: July 24, 2017: History of present illness: Ms. Rivera is a 42 year old white female with a history of chronic pain and fibromyalgia. She also has been a smoker since the age of 7. She apparently went to a clinic or hospital in [place] about 5 days ago, when she noted dyspnea on exertion. She says they did some tests, and then prescribed her oxygen and gave her a shot of a "blood thinner" in her abdomen. She says they prescribed her inhalers at that time as well. She cannot really recall what tests they did or what the results were, or even the name of the facility. She says she has not been diagnosed with COPD in the past. Over the last 5 days her breathing is gotten worse, and she was going to go see her regular doctor tomorrow as scheduled, but her sister insisted that she come to the emergency room today. Apparently O2 saturations on room air today were in the 60s. Chest x-ray is suggestive of left lower lobe pneumonia. She also had a low- grade fever. She reports that she has had a cough productive of yellowish phlegm for the last 5 days, as well as a sore throat. She is having some chest pain with coughing, which she describes as a "sandpaper" type sensation. She is having dyspnea with exertion as well as at rest, and also when lying flat. She otherwise denies recent fever or chills. She does have chronic headaches, which are unchanged. She has chronic blurry vision, which is unchanged. She denies earaches or sinus symptoms. She denies palpitations, abdominal pain, nausea or vomiting. She does have chronic diarrhea, as well as chronic edema. She denies dysuria. July 25: This morning, the patient is quite somnolent. She notes that she was up until about 3 AM, she could just could not get to sleep. She thinks her breathing might be a bit better but she is not entirely sure. We did obtain some records from [facility] where she was seen last week. They treated her for COPD exacerbation, but she left after only one day, as she was insistent on leaving so she could go out and smoke. Otherwise she reports her usual widespread chronic pain. She denies fever chills, chest pain or palpitations, GI or symptoms, beyond her usual. She did undergo a CT angiogram today, which does show emphysema, atelectasis, and bilateral infiltrates, but did not show PE. July 26: The patient seen examined, sitting comfortably in bed, denies any acute issues, is still having some shortness of breath and cough, eager to go home. patient seems to be on baseline oxygen needs she sill has zen wheezing, made her walk in the room and by just walking 7-10 feet the patient had cough and worsening wheezing. not stable or ready for discharge yet. explained same to patient ,she verbalized understanding. Pertinent ROS: Denies headache, dizziness Denies chest pain, palpitations cough and shortness of breath (imrpoving, worse with activity) Denies abdominal pain, nausea or vomiting. - Constitutional Vitals: Vital Signs Temp Pulse Resp BP Pulse Ox 97.0 F 90 18 133/78 91 07/26/17 07:38 07/26/17 13:30 07/26/17 13:30 07/26/17 07:38 07/26/17 13:31 Period Temp Pulse Resp BP Sys/Ohara Pulse Ox Last 24 Hr 96.5 F-97.7 F 80-104 16-20 98-133/56-78 91-97 Intake and Output 07/25/17 07/26/17 07/26/17 21:59 05:59 13:59 Intake Total 800 / 800 1560 / 1560 200 / 200 Output Total 160 / 160 50 / 50 Balance 640 / 640 1510 / 1510 200 / 200 Weight 208 lb Intake & Output: Intake & Output 07/25/17 07/26/17 07/26/17 21:59 05:59 13:59 Intake Total 800 / 800 1560 / 1560 200 / 200 Output Total 160 / 160 50 / 50 Balance 640 / 640 1510 / 1510 200 / 200 Weight 208 lb Intake: IV 1060 / 1060 Potassium Chloride 20 Meq 1010 / 1010 In Sodium Chloride 0.45% 1,000 ml @ 75 mls/hr IV .[id number] [facility] Rx#: [id number] Rocephin 1 gm In Dextrose 50 / 50 5% in Water 50 ml @ 100 mls/hr IV Q24H [facility] Rx#: [id number] Oral 800 / 800 500 / 500 200 / 200 Output: Void Amount 160 / 160 Emesis 50 / 50 Other: Meal Dinner Percent of Meal Consumed 75% Feeding Ability Independent # Voids 1 1 Exam: Constitutional; Afebrile, cooperative, alert, not in distress. Eyes- No icterus, , No periorbital swelling Ears- Ext ear normal, hearing normal to conversation. Neck- Midline trachea, supple Respiratory system: Air Entry equal on both sides,zen rhochi and wheezing. CVS- Rate rhythm regular, S1,S2 heard, no gallop, no rub. Abdomen- Soft nontender abdomen, no organomegaly, no tenderness, no guarding or rigidity, [employer]- AOOx3, moving all extremities, no gross focal deficit noted. Medical - PN: Obj Da - Labs CBC & Chem 7: 07/26/17 04:28 07/26/17 04:28 Labs: Abnormal Lab Results 07/26/17 07/26/17 07/25/17 04:28 04:28 04:31 WBC 11.2 H RBC 3.93 L Hgb 11.5 L Hct 33.9 L Gran % 81.4 H Lymph % (Auto) 13.5 L Gran # 9.1 H Lymph # (Auto) Creatinine 0.5 L Glucose 153 H 130 H 07/25/17 04:31 WBC 13.3 H RBC Hgb Hct 35.6 L Gran % 86.3 H Lymph % (Auto) 9.3 L Gran # 11.5 H Lymph # (Auto) 1.2 L Creatinine Glucose Meds: Medications Acetaminophen (Tylenol) 650 mg PO Q6HP PRN PRN Reason: PAIN/FEVER > 101 Acetaminophen/Butalbital/Caffeine (Fioricet) 1 tab PO Q6HP PRN PRN Reason: Headache Last Admin: 07/25/17 20:20 Dose: 1 tab Hydrocodone Bitart/Acetaminophen (Manning 10/325mg) 1 tab PO Q4H PRN PRN Reason: Pain Last Admin: 07/26/17 09:11 Dose: 1 tab Albuterol Sulfate (Ventolin) 2.5 mg NEB Q2HP PRN PRN Reason: Shortness Of Breath Albuterol/Ipratropium (Duoneb) 3 ml NEB Q6HRT [facility] Last Admin: 07/26/17 13:21 Dose: 3 ml Buspirone HCl (Buspar) 15 mg PO Q6 [facility] Last Admin: 07/26/17 05:43 Dose: Not Given Calcium Carbonate/Glycine (Tums) 1,000 mg CHEWED Q4HP PRN PRN Reason: Dyspepsia Clonazepam (Klonopin) 2 mg PO TID [facility] Last Admin: 07/26/17 09:09 Dose: 2 mg Cyclobenzaprine HCl (Flexeril) 10 mg PO TID [facility] Last Admin: 07/26/17 09:09 Dose: 10 mg Docusate Sodium (Colace) 100 mg PO BID PRN PRN Reason: Constipation Doxepin HCl (Sinequan) 100 mg PO [facility] Last Admin: 07/25/17 20:17 Dose: 100 mg Duloxetine HCl (Cymbalta) 30 mg PO [facility] Last Admin: 07/25/17 20:17 Dose: 30 mg Enoxaparin Sodium (Lovenox) 40 mg SQ DAILY [facility] Last Admin: 07/26/17 09:11 Dose: 40 mg Ceftriaxone Sodium 1 gm/ (Dextrose) 50 mls @ 100 mls/hr IV Q24H [facility] Last Admin: 07/26/17 09:05 Dose: 100 mls/hr Potassium Chloride 20 meq/ (Sodium Chloride) 1,010 mls @ 75 mls/hr IV .[id number] [facility] Last Admin: 07/26/17 02:15 Dose: 75 mls/hr Lisinopril (Zestril) 20 mg PO DAILY [facility] Last Admin: 07/26/17 09:12 Dose: 20 mg Loperamide HCl (Imodium) 2 mg PO QIDP PRN PRN Reason: Diarrhea Magnesium Hydroxide (Milk Of Magnesia) 30 ml PO DAILYP PRN PRN Reason: Constipation Naloxone HCl (Narcan) 0.1 mg IV Q2MIN PRN PRN Reason: Opiate Reversal Nicotine (Nicoderm) 21 mg TOPICAL DAILY@1000 [facility] Last Admin: 07/26/17 09:12 Dose: 21 mg Omeprazole (Prilosec) 20 mg PO [facility] Last Admin: 07/25/17 20:17 Dose: 20 mg Ondansetron HCl (Zofran) 4 mg IV Q6HP PRN PRN Reason: Nausea And Vomiting Last Admin: 07/26/17 09:05 Dose: 4 mg Prednisone (Prednisone) 60 mg PO [facility] Last Admin: 07/26/17 09:10 Dose: 60 mg Pregabalin (Lyrica) 200 mg PO DAILY [facility] Last Admin: 07/26/17 09:10 Dose: 200 mg Promethazine HCl (Phenergan) 25 mg PO Q6HP PRN PRN Reason: Nausea Last Admin: 07/25/17 15:36 Dose: 25 mg Sodium Chloride (Saline Flush) 10 ml IV Q8 [facility] Last Admin: 07/26/17 05:43 Dose: Not Given Medical - PN: A/P - Time Spent With Patient Total time spent is greater than 50% in coordination of care (as documented) at patient's floor/unit and/or counseling patient: - Narrative A/P Narrative: #1. Pulmonary. Patient presents with ongoing dyspnea and room air hypoxia. Chest x-ray suggestive of left lower lobe pneumonia. However, patient was also evaluated at another facility in [place] about 5 days ago, and is uncertain about what those results showed. She appears to have a COPD exacerbation, but has never been diagnosed with COPD. Chest CT scan today does confirm emphysema and bilateral infiltrates, so this presentation is likely most consistent with pneumonia superimposed on COPD. Continue current treatment plan: -Continuous pulse oximetry -Albuterol nebs, oxygen, pulmonary toilet as needed -on po prednisone 60mg -For apparent pneumonia, cover with Rocephin and azithromycin. culture neg so far. clinically improving. 2. Tobacco abuse. -NicoDerm patch. 3. Rheumatologic. Patient reports a history of fibromyalgia and chronic pain. She is on numerous medications, that generally would not be used together. We did receive a discharge medication list from [facility], so we will try to use that as her official home medication list, although there is still some questions about taking amitriptyline in addition to doxepin. Most home medications were resumed today. 4. Status: Full code. She says she would like her twin sister, Reshma De Guzman, to be her POA. 5. DVT prophylaxis: Subcu Lovenox. 6. Depression and anxiety. Continue medications, clonazepam, doxepin, Cymbalta, BuSpar. 7. Hypertension. Controlled. 8. GI. History of GERD and gastritis. Patient should consider quitting smoking. Continue ranitidine. Medical - PN: Qual - Stroke Symptom Onset Unknown: No - VTE Deep Vein Thrombosis/Pulmonary Embolism Present on Admission: No
[2017-07-26] MEDS: DULoxetine 30 MG CAPSULE PO SCH (20:11)
[2017-07-26] MEDS: DOXEPIN 25 MG CAPSULE PO SCH (20:11)
[2017-07-26] MEDS: OMEPRAZOLE 20 MG CAPSULE PO SCH (20:11)
[2017-07-26] MEDS: PREGABALIN 25 MG CAPSULE PO SCH (22:01)
[2017-07-27] MEDS: IPRATROPIUM/ALBUTEROL 3 ML AMPUL.NEB NEB SCH ×3 (01:14→13:16)
[2017-07-27] MEDS: busPIRone 5 MG TABLET PO SCH ×3 (01:16→13:35)
[2017-07-27] MEDS: POTASSIUM CHLORIDE 20 MEQ in 0.45 % SODIUM CHLORIDE 1,000 ML IV SCH ×2 (01:16→08:21)
[2017-07-27] MEDS: HYDROcodone/APAP 10/325MG TABLET PO PRN ×3 (04:55→13:35)
[2017-07-27] MEDS: 0.9 % SODIUM CHLORIDE 10 ML SYRINGE IV SCH ×2 (06:00→14:05)
[2017-07-27 06:09] LABS: Basophils # (Auto) 0 K/mcL (0.0-0.3); Basophils % (Auto) 0.2 % (0.0-2.0); Eosinophils # (Auto) 0.1 K/mcL (0.0-0.7); Eosinophils % (Auto) 0.4 % (0.0-7.0); Granulocytes % (Auto) 72.1 % (38.0-78.0); Lymphocytes % (Auto) 22.8 % (15.5-49.0); Mean Cell Volume 87.9 fL (80.0-100.0); Mean Corpuscular HGB Conc 34.2 g/dL (31.0-36.0); Mean Corpuscular Hemoglobin 30.1 pg (26.0-34.0); Monocytes # (Auto) 0.6 K/mcL (0.1-0.9); Monocytes % (Auto) 4.5 % (1.0-12.0); Platelet Count 299 K/mcL (140-440); RBC 3.79 M/mcL (4.00-5.20); Red Cell Distribution Width 14.3 % (11.5-14.5)
[2017-07-27 06:16] LABS: ALT/SGPT 14 U/l (0-40); Albumin 3.3 gm/dL (3.2-5.2); Albumin/Globulin Ratio 1.3 (1.0-2.3); Alkaline Phosphatase 79 U/L (39-117); Bilirubin,Direct < 0.2 mg/dL (0.0-0.3); Blood Urea Nitrogen 13 mg/dl (6-20); Gamma Glutamyl Transpeptidase 22 U/L (5-36); Magnesium 1.7 mg/dL (1.6-2.5)
[2017-07-27] MEDS: PREGABALIN 25 MG CAPSULE PO SCH (08:17)
[2017-07-27] MEDS: CYCLOBENZAPRINE 10 MG TABLET PO SCH (08:18)
[2017-07-27] MEDS: predniSONE 20 MG TABLET PO SCH (08:19)
[2017-07-27] MEDS: ENOXAPARIN 40 MG/0.4 ML SYRINGE SQ SCH (08:20)
[2017-07-27] MEDS: clonazePAM 0.5 MG TABLET PO SCH (08:20)
[2017-07-27] MEDS: LISINOPRIL 20 MG TABLET PO SCH (08:20)
[2017-07-27] MEDS: cefTRIAXone 1 GM in DEXTROSE 5% IN WATER 50 ML IV SCH (08:21)
[2017-07-27] MEDS: ONDANSETRON 4 MG/2 ML VIAL IV PRN (08:40)
--- NOTE | 2017-07-27 13:10 | Discharge Summary ---
Medical - DS: Prov Patient information: Note initiated : 07/27/17 at 1:00 pm Patient: Cassie Rivera 42 y/o F admitted on 07/24/17 for Short of Breath/ Pneumonia. Date of admission: 07/24/17 18:40 Discharge date: 07/27/17 Primary care physician: Esther Rubin Admitting clinician: Karime Hinson Attending physician on discharge: Karime Hinson Medical - DS: Meds - Discharge Medications Prescriptions: Albuterol Sulfate [Ventolin] 2.5 mg NEB Q2HP PRN #30 PRN Reason: Shortness Of Breath Amoxicillin/Potassium Clav [Augmentin] 875 mg PO Q12H #14 tablet Ipratropium/Albuterol [Duoneb] 3 ml NEB Q6HRT #90 predniSONE [Prednisone] 20 mg PO QAC #15 tablet Active and Home Medications: Discharge medications: Augmentin 875 mg p.o. twice daily 7 days, for presumed pneumonia and positive Raghu. Elavil 650 mg every 6 hours as needed Fiorinal 1 tab every 6 hours as needed migraines Albuterol inhaler as needed Albuterol per nebulizer every 2 hours as needed shortness of breath or wheezing Duo nebs 3 mL 3 times daily until pneumonia resolves 9 BuSpar 15 mg every 6 hours Calcium carbonate 1000 mg as needed Ativan 2 mg 3 times daily Flexeril 10 mg p.o. 3 times daily Colace 100 mg p.o. twice daily Doxepin 100 mg p.o. nightly Cymbalta 30 mg nightly Mazama 10/325 one every 4 hours as needed pain Lisinopril 20 mg daily Loperamide 2 mg 4 times daily as needed diarrhea Milk of magnesia 30 mL daily as needed constipation Omeprazole 20 mg p.o. nightly Zofran 4 mg sublingual every 6 hours as needed nausea Prednisone taper, 60 mg 1 day, then 50 mg 1, then decrease by 10 mg per day until finished. Home oxygen liters with exertion, 0-1 L at rest, until rechecked by primary care physician. 100 mg p.o. twice daily Phenergan 25 mg p.o. every 6 hours as needed nausea Trouble verifying all of the home medications, as the home list was not the same as the discharge list from [facility] from a few days ago. We have held amitriptyline, Effexor, ranitidine, Pyridium, chlorzoxazone . these meds meds need to be clarified with her primary care physician at follow- up. Previous home Medications (?): Amitriptyline [Elavil] 100 mg PO HS 08/22/15 [History Confirmed 07/25/17 Last Taken Unknown] DULoxetine [Cymbalta] 30 mg PO HS 08/22/15 [History Confirmed 07/25/17 Last Taken Unknown] Doxepin HCl 100 mg PO HS 08/22/15 [History Confirmed 07/25/17 Last Taken Unknown ] HYDROcodone/APAP 10/325MG [Mazama 10/325Mg] 1 tab PO Q6HP PRN 08/22/15 [History Confirmed 07/25/17 Last Taken Unknown] Pregabalin [Lyrica] 400 mg PO HS 08/22/15 [History Confirmed 07/25/17 Last Taken Unknown] clonazePAM [Klonopin] 2 mg PO TID 07/24/17 [History Confirmed 07/25/17 Last Taken Unknown] Albuterol Sulfate [Ventolin] 2 puff INH Q6HP PRN 07/25/17 [History Confirmed Last Taken Unknown] Chlorzoxazone [Parafon Forte Dsc] 500 mg PO TID 07/25/17 [History Confirmed Last Taken Unknown] Fiorinal 50-325-40 mg Capsule 1 tab PO Q6HP PRN 07/25/17 [History Confirmed Last Taken Unknown] Lisinopril [Zestril] 20 mg PO DAILY 07/25/17 [History Confirmed 07/25/17 Last Taken Unknown] Loperamide HCl [Loperamide] 2 mg PO QIDP PRN 07/25/17 [History Confirmed Last Taken Unknown] Omeprazole [PriLOSEC] 20 mg PO HS 07/25/17 [History Confirmed 07/25/17 Last Taken Unknown] Promethazine [Phenergan] 25 mg PO Q6HP PRN 07/25/17 [History Confirmed 07/25/17 Last Taken Unknown] busPIRone [Buspar] 15 mg PO Q6 07/25/17 [History Confirmed 07/25/17 Last Taken Unknown] Medical - DS: Hosp Hospital course: Mr. Rivera is a 42 year old F July 24, 2017: History of present illness: Ms. Rivera is a 42 year old white female with a history of chronic pain and fibromyalgia. She also has been a smoker since the age of 7. She apparently went to a clinic or hospital in [place] about 5 days ago, when she noted dyspnea on exertion. She says they did some tests, and then prescribed her oxygen and gave her a shot of a "blood thinner" in her abdomen. She says they prescribed her inhalers at that time as well. She cannot really recall what tests they did or what the results were, or even the name of the facility. She says she has not been diagnosed with COPD in the past. Over the last 5 days her breathing is gotten worse, and she was going to go see her regular doctor tomorrow as scheduled, but her sister insisted that she come to the emergency room today. Apparently O2 saturations on room air today were in the 60s. Chest x-ray is suggestive of left lower lobe pneumonia. She also had a low- grade fever. She reports that she has had a cough productive of yellowish phlegm for the last 5 days, as well as a sore throat. She is having some chest pain with coughing, which she describes as a "sandpaper" type sensation. She is having dyspnea with exertion as well as at rest, and also when lying flat. She otherwise denies recent fever or chills. She does have chronic headaches, which are unchanged. She has chronic blurry vision, which is unchanged. She denies earaches or sinus symptoms. She denies palpitations, abdominal pain, nausea or vomiting. She does have chronic diarrhea, as well as chronic edema. She denies dysuria. July 25: This morning, the patient is quite somnolent. She notes that she was up until about 3 AM, she could just could not get to sleep. She thinks her breathing might be a bit better but she is not entirely sure. We did obtain some records from [facility] where she was seen last week. They treated her for COPD exacerbation, but she left after only one day, as she was insistent on leaving so she could go out and smoke. Otherwise she reports her usual widespread chronic pain. She denies fever chills, chest pain or palpitations, GI or symptoms, beyond her usual. She did undergo a CT angiogram today, which does show emphysema, atelectasis, and bilateral infiltrates, but did not show PE. July 26: The patient seen examined, sitting comfortably in bed, denies any acute issues, is still having some shortness of breath and cough, eager to go home. patient seems to be on baseline oxygen needs she sill has zen wheezing, made her walk in the room and by just walking 7-10 feet the patient had cough and worsening wheezing. not stable or ready for discharge yet. explained same to patient ,she verbalized understanding. July 27: Hospital course: Today, the patient states she is feeling better, even though she still wheezes with any activity she has been up walking around without too much difficulty. Her O2 saturations do tend to drop with exertion, but she actually can maintain an O2 saturation above 90% on room air, while at rest. Continues to have significant cough and wheezing, but this is definitely improved over yesterday. Otherwise, she feels improved enough that she would very much like to return home today. Her sister is in the room with her this morning, and cautions that the patient may say whatever we want to here just to be able to get out of here. Patient denies fever chills, chest pain or palpitations. Shortness of breath is much improved, but she does continue to wheeze and cough. She denies abdominal pain, nausea or vomiting. She does have chronic diarrhea. She denies dysuria. On exam: Afebrile. Heart rate 77. Respiratory rate 20. Pressure 114/76. O2 saturation is 96% on 2 L this morning, and 92% on room air at rest. Neck is supple without obvious lymphadenopathy or JVD. Cardiac exam shows regular rate and rhythm. Lungs continue to show coarse breath sounds and soft wheezes throughout both lung bocanegra, but are generally much improved than before. There is no accessory muscle use. Abdomen is soft and nontender with no obvious masses. Extremities show no edema. Neurologic exam: Is grossly nonfocal. Plan: #1. Pulmonary. Patient presents with ongoing dyspnea and room air hypoxia. Chest x-ray suggestive of left lower lobe pneumonia. She presented also with a COPD exacerbation, although she apparently was not previously diagnosed with COPD. Chest CT scan does confirm emphysema and bilateral infiltrates, so this presentation is likely most consistent with pneumonia superimposed on COPD. -We will change her to oral Augmentin, to cover her pneumonia, and also because 1 of her preliminary blood cultures is growing a gram-positive cocci. This will probably be further ID over the next day or so. --she is stable for discharge to home, with home oxygen, home nebulized duo nebs and albuterol, as well as the antibiotics. -Taper oral prednisone from 60 mg daily, by 10 mg per day, until finished. 2. Tobacco abuse. And discussed that she really needs to quit. She is willing to start cutting down gradually, but not to stop cold turkey. She does not feel that the NicoDerm patch is helping. I strongly advised her against smoking at all over the next week or so, until she recovers from her pneumonia, but she admits she will probably not be compliant with that. 3. Rheumatologic. Patient reports a history of fibromyalgia and chronic pain. She is on numerous medications, that generally would not be used together. We did receive a discharge medication list from [facility], that conflicted with her home medication list. We resume the meds that seemed more or less reasonable, although she does appear to be quite overmedicated at this time. She should follow-up with her primary care physician, and perhaps a critical systems technician, to clarify if she is being overmedicated. 4. Status: Full code. She says she would like her twin sister, Reshma De Guzman, to be her POA. 5. DVT prophylaxis: Subcu Lovenox is used.. 6. Depression and anxiety. Continue medications, clonazepam, doxepin, Cymbalta, BuSpar. 7. Hypertension. Controlled. 8. GI. History of GERD and gastritis. Patient should consider quitting smoking. We have suggested she change from ranitidine over to omeprazole to give her stomach better protection. -Also, CT scan suggests fatty liver infiltration. I asked her dietitian to discuss with her a better diet plan, and reviewed with her that fatty liver can lead to cirrhosis. While here, the patient has generally declined a healthy diet, and preferred to order lots of desserts and other sweets. Discharge diagnosis: Pneumonia superimposed on COPD exacerbation. Tobacco abuse. Secondary discharge diagnosis: Fatty liver. Fibromyalgia. Polypharmacy with overmedication. Time spent discussing smoking cessation with patient: 3 to 10 minutes - Time Spent with Patient Total time spent providing and/or coordinating discharge services: Greater than 30 minutes Medical - DS: Exam - Constitutional Vitals: Vital Signs Temp Pulse Pulse Pulse Resp BP Pulse Ox 07/27/17 08:00 96 07/27/17 07:41 96.4 F L 20 114/76 96 07/27/17 07:40 77 18 97 07/27/17 04:00 97.0 F 84 16 118/70 93 07/27/17 00:00 97.0 F 82 16 118/79 94 07/26/17 20:00 97.2 F 89 20 120/76 94 07/26/17 19:53 93 07/26/17 19:52 88 18 93 07/26/17 16:00 99 H 18 122/68 93 07/26/17 13:31 91 07/26/17 13:30 90 18 Intake and Output 07/26/17 07/27/17 07/27/17 21:59 05:59 13:59 Intake Total 1610 / 1610 600 / 600 1350 / 1350 Output Total 600 / 600 Balance 1010 / 1010 600 / 600 1350 / 1350 Intake: IV 1010 / 1010 1010 / 1010 Potassium Chloride 20 Meq 1010 / 1010 1010 / 1010 In Sodium Chloride 0.45% 1,000 ml @ 75 mls/hr IV .[id number] [facility] Rx#: [id number] Oral 600 / 600 600 / 600 340 / 340 Output: Void Amount 600 / 600 Other: Meal Breakfast Percent of Meal Consumed 100% Feeding Ability Independent # Voids 2 2 Weight 217 lb 6.4 oz Medical - DS: Data Labs on day of discharge: Labs from last 24 hours 07/27/17 07/27/17 04:02 04:02 WBC 13.2 H RBC 3.79 L Hgb 11.4 L Hct 33.3 L MCV 87.9 MCH 30.1 MCHC 34.2 RDW 14.3 Plt Count 299 MPV 7.9 Gran % 72.1 Lymph % (Auto) 22.8 Wilcox % (Auto) 4.5 Eos % (Auto) 0.4 Baso % (Auto) 0.2 Gran # 9.5 H Lymph # (Auto) 3.0 Wilcox # (Auto) 0.6 Eos # (Auto) 0.1 Baso # (Auto) 0 Sodium 142 Potassium 3.6 Chloride 104 Carbon Dioxide 29 Anion Gap 9.0 BUN 13 Creatinine 0.5 L GFR Calculation 118 Glucose 137 H Uric Acid 4.0 Calcium 8.1 L Phosphorus 3.1 Magnesium 1.7 Total Bilirubin < 0.2 Direct Bilirubin < 0.2 GGT 22 AST 7 ALT 14 Alkaline Phosphatase 79 Lactate Dehydrogenase 171 Total Protein 5.9 Albumin 3.3 Globulin 2.6 Albumin/Globulin Ratio 1.3 Triglycerides 107 July 27: 1 bottle of blood cultures from July 24 is growing gram-positive cocci in clusters. ID to follow. July 25: CT angiogram of the chest: Shows mild centrilobular emphysema. Moderate subsegmental atelectasis in the lingula, left lower lobe, inferior right lower lobe. Vague patchy groundglass infiltrates in the right upper lobe and both lower lobes. 23 mm nodule noted in the left thyroid lobe and 19 mm nodule in the right thyroid lobe. Consider follow-up in 6 months. Moderate hepatomegaly with diffuse fatty changes. No PE. July 24: CBC: White blood cell count 17,000, hematocrit 39, platelets 320,000, granulocyte count 14,700 D-dimer elevated at 0.71 next Lactic acid normal at 0.6 Chemistry panel: Notable for chloride of 94, glucose 116 Troponin T is normal at less than 0.01 CRP is elevated at 9.7 ProBNP is normal at less than 50 Urine tox screen is positive for opiates, barbiturates, benzodiazepines Sputum Gram stain shows many polys but no organisms. Culture is negative so far. Medical - DS: A/P - Patient/Caregiver Discharge Instructions Activity: increase activity as tolerated Diet: Low Fat Additional Instructions: 1. COPD exacerbation, plus pneumonia. -Please take Augmentin 875 mg twice a day for the next 7 days, for your pneumonia. Please take this with food so it does not upset her stomach. -Please wear oxygen 1-2 L either continuously, or at least whenever you are up and walking around, so the your oxygen levels do not drop too low. -We have prescribed DuoNeb and albuterol medications for your nebulizer. Please use the DuoNeb in the nebulizer machine 3 times a day to help keep her lungs open. You can add the albuterol nebulizer medication every 2-4 hours if needed for any increased shortness of breath or wheezing. -Do not use your normal inhaler while using the nebulized medications, as they are the same. -Please call your physician or come back to the emergency room for high fevers, worsening shortness of breath, etc. 2. Fatty liver infiltration. Your liver is filling up with fat. This can eventually lead to cirrhosis. He need to start working harder on a low-fat, healthier diet. Regular exercise would help as well. 3. Fibromyalgia and depression. Your home medication list are quite confusing. It would appear you are overmedicated with several of your medications. Please review this with your primary care physician, or have her refer you to a critical systems technician to sort out which medication should be cut back. 4. Tobacco abuse. Your cigarette smoking is clearly causing failure of your lungs. If you do not stop, your lungs will continue to get worse. Please stop smoking altogether, as soon as possible. -Please never use oxygen with an open flame or cigarette in the room. Discharge medications: Augmentin 875 mg p.o. twice daily 7 days, for presumed pneumonia and positive Raghu. Elavil 650 mg every 6 hours as needed Fiorinal 1 tab every 6 hours as needed migraines Albuterol inhaler as needed Albuterol per nebulizer every 2 hours as needed shortness of breath or wheezing Duo nebs 3 mL 3 times daily until pneumonia resolves 9 BuSpar 15 mg every 6 hours Calcium carbonate 1000 mg as needed Ativan 2 mg 3 times daily Flexeril 10 mg p.o. 3 times daily Colace 100 mg p.o. twice daily Doxepin 100 mg p.o. nightly Cymbalta 30 mg nightly Mazama 10/325 one every 4 hours as needed pain Lisinopril 20 mg daily Loperamide 2 mg 4 times daily as needed diarrhea Milk of magnesia 30 mL daily as needed constipation Omeprazole 20 mg p.o. nightly Zofran 4 mg sublingual every 6 hours as needed nausea Prednisone taper, 60 mg 1 day, then 50 mg 1, then decrease by 10 mg per day until finished. Home oxygen liters with exertion, 0-1 L at rest, until rechecked by primary care physician. 100 mg p.o. twice daily Phenergan 25 mg p.o. every 6 hours as needed nausea Trouble verifying all of the home medications, as the home list was not the same as the discharge list from [facility] from a few days ago. We have held amitriptyline, Effexor, ranitidine, Pyridium, chlorzoxazone . these meds meds need to be clarified with her primary care physician at follow- up. Prescriptions: Albuterol Sulfate [Ventolin] 2.5 mg NEB Q2HP PRN #30 PRN Reason: Shortness Of Breath Amoxicillin/Potassium Clav [Augmentin] 875 mg PO Q12H #14 tablet Ipratropium/Albuterol [Duoneb] 3 ml NEB Q6HRT #90 predniSONE [Prednisone] 20 mg PO [facility] #15 tablet - Problem Maintenance (1) Hypoxia Status: Acute (2) Tobacco abuse Status: Chronic (3) Fibromyalgia Status: Chronic (4) Chronic pain Status: Chronic (5) Chronic diarrhea Status: Chronic (6) Depression with anxiety Status: Chronic (7) Community acquired pneumonia Status: Acute (8) Acute exacerbation of chronic obstructive airways disease Status: Acute - Follow up Plan Follow up with: Esther Rubin ARNP [Primary Care Provider] - (Please call Sunday and schedule a follow up to be seen in ) Disposition: Home, Self-Care Prognosis: Fair Rehab Potential: Fair Overall status at discharge: patient is progressing back to baseline Medical - DS: Qual - VTE Deep Vein Thrombosis/Pulmonary Embolism Present on Admission: No
[2017-07-27] MEDS: NICOTINE 21 MG PATCH TOPICAL SCH (13:37)
== END 2017-07-27 15:02 | disposition home or self-care (01) | DRG 190 ==
LOC: ED 15:06 → MEDSUR 18:40
PROVIDERS: ADMIT Internal Medicine; ATTEND Internal Medicine